=== PATIENT | female | born 2000 | race Caucasian/White ===

== ENCOUNTER 2019-01-26 07:19 | Day surgery (SDC) | payer OTHER ==
--- NOTE | 2019-01-25 19:02 | Pre-Procedure Note/Attestation ---
Pre-Procedure Note/Attestation Complete Prior to Procedure Planned Procedure: bilateral Procedure Narrative: 1. Bilateral tonsillectomy 2. Nasopharyngeal exam 3. Possible adenoidectomy Indications for Procedure Pre-Operative Diagnosis: Recurrent tonsillitis-usually strep with hypertrophied tonsils. Attestation I attest that I discussed the nature of the procedure; its benefits; risks and complications; and alternatives (and the risks and benefits of such alternatives ), prior to the procedure, with the patient (or the patient's legal counter sales representative). I attest that, if there was a reasonable possibility of needing a blood transfusion, the patient (or the patient's legal counter sales representative) was given the [place] Department of Health Services standardized written summary, pursuant to the [place] Blood Safety Act ([place] Health and Safety Code # 1645, as amended). I attest that I re-evaluated the patient just prior to the surgery and that there has been no change in the patient's H&P. Conner Berman MD Jan 25, 2019 19:02
--- NOTE | 2019-01-25 19:03 | Brief Operative Note ---
Immediate Post Operative Note Operative Note Chief Complaint: Resurent tonsillitis Pre-op Diagnosis: Recurrent tonsillitis-usually strep with hypertrophied tonsils. Procedure: 1. Bilateral tonsillectomy 2. Nasopharyngeal exam 3. Possible adenoidectomy Post-op Diagnosis: same as pre-op Surgeon: Conner Berman Stroboroma Operator: none Additional Surgeons: none Anesthesiologist: MD Joselito Anesthesia: general Specimen: yes - Right and left tonsils marked separately Complications: none Condition: stable Fluids: D5LR Estimated Blood Loss: volume - 5 cc Drains: none Packing: none Implant(s) used?: No Conner Berman MD Jan 25, 2019 19:03 Golden Benavidez MD Jan 26, 2019 09:29
--- NOTE | 2019-01-25 19:09 | History and Physical ---
"History & Physical (DB) History & Physical History & Physical Chief Complaint: Recurrent tonsillitis Reason for Hospitalization: outpt surgery History obtained from: Chart and Patient HPI: is a 18 year old female who presents with . Past Medical History:recurrent tonsil infections Social History:single, no children Past Medical History:otherwise unremarkable Diagnosis:Recurrent tonsillitis J03.01 Past Surgical History:[place] teeth Occupational History: Student [employer] | [employer] Smoking status:none Smokeless tobacco:none Alcohol use:social light Drug use:none Sexual activity:unknown Partners:unknown control/ protection:unknown Family History:ovarian cancer Allergies:NKDA Medications:NOrco, Augmentin Review of Symptoms: General ROS: no weight loss or fever Psychological ROS: no depression or mood changes, no memory loss Ophthalmic ROS: no visual changes or eye irritation ENT ROS: no nasal congestion, hearing loss, dizziness-HYPERTROPHIED BILATERAL PALATINE TONSILS. Allergy and Immunology ROS: no allergic symptoms or urticaria Hematological and Lymphatic ROS: no swollen glands, unusual bleeding or bruising Endocrine ROS: no polyuria, polydipsia, weight changes, temperature intolerance Respiratory ROS: no cough, shortness of breath, or wheezing Cardiovascular ROS: no chest pain or dyspnea on exertion Gastrointestinal ROS: no abdominal pain, change in bowel habits, or black or bloody stools Musculoskeletal ROS: no myalgias or arthralgias Neurological ROS: no TIA or stroke symptoms Dermatological ROS: no new or changing skin lesions, rashes or pruritis Physical Exam Vitals: Intake/Output Summary (Last 24 hours) General appearance: alert, cooperative, no distress, appears stated age Head: Normocephalic, without obvious abnormality, atraumatic Eyes: conjunctivae/corneas clear. PERRL, EOM's intact. Throat: Lips, mucosa, and tongue normal. Teeth and gums normal Neck: supple, symmetrical, trachea midline, no adenopathy, thyroid: not enlarged, symmetric, no tenderness/mass/nodules, no carotid bruit and no JVD Lungs: clear to auscultation bilaterally Heart: regular rate and rhythm, S1, S2 normal, no murmur, click, rub or gallop Abdomen: soft, non-tender. Bowel sounds normal. No masses, no organomegaly Extremities: extremities normal, atraumatic, no cyanosis or edema Pulses: 2+ and symmetric Skin: Skin color, texture, turgor normal. No rashes or lesions Neurologic: Grossly normal Laboratories:PREG TEST ON ADMISSION OTHERWISE NONE INDICATED IN THIS OTHERWISE HEALTHY 18 YO FEMALE. Assessment/Problem List: Recurrent tonsillitis Plan: 1. Bilateral tonsillectomy 2. Nasopharyngeal exam 3. Possible adenoidectomy DVT Prophylaxis: scd Code status: full Hospital Classification declaration: Based on this initial evaluation, and depending on the patient's clinical course, I anticipate that this patient will NOT require hospitalization. Disposition: Once the patient is stable to leave the hospital, I anticipate the patient will likely be discharged to the following environment-with parent to home. I spent 70 minutes on this patient's case, and minutes was dedicated to counseling and/or care coordination. Time of note may not reflect time of encounter. Conner Berman MD Jan 25, 2019 19:09"
--- NOTE | 2019-01-25 19:13 | Discharge Instructions ---
Discharge Instructions Discharge Instructions Follow up with: later in week-appt already set Diet: full liquid Resume Normal Activity?: No Activity: light activity Pneumonia Vaccine: pt refused vaccine Influenza Vaccine (Aug to Jan): pt refused vaccine Follow Up Orders Pt has printed post op instructions which were discussed and given to pt. at her pre op visit. Also Augmentin and [place] Rx were given to pt. at that time. Return to Work/School on: Feb 08, 2019 Special Instructions ice to neck x 48 hours. For Surgical Patients Dressing Care: other Contact your physician for: bleeding, pain, tenderness, redness, swelling, yellowish discharge in the op. site For Congestive Heart Failure Reminder Report to your physician any weight gain of 5 pounds or more in one week. Conner Berman MD Jan 25, 2019 19:13
[2019-01-26] VITALS (11 sets, daily range): BP systolic 105–135; BP diastolic 61–83
[~2019-01-26] VITALS: Ht 160 cm; Wt 53.1 kg
[~2019-01-26 07:19] MED LIST: Bupivacaine w/Epi 0.5% 30ml Vial INJ ONE; Cocaine HCl 4% 4ml vial TOPIC ONE; Lidocaine 1% 10mg/ml/Epi 0.005mg/ml 30ml vial INJ ONE; Thrombin 5000 units TOPIC ONE; ceFAZolin sod 1 GM in D5W 55 ML IV ONE
[2019-01-26] MEDS ORDERED: Dexamethasone 4mg/ml vial IVP ONE (07:30)
[2019-01-26] MEDS ORDERED: NKM (08:02)
[2019-01-26] MEDS ORDERED: Dyna-Hex 2% Top Sol 2oz TOPIC ONE (09:00)
[2019-01-26] MEDS ORDERED: LR 1000ml 1,000 ML IVLG SCH (09:14)
[2019-01-26] MEDS ORDERED: Hydromorphone 0.5mg/0.5ml inj IVP PRN (09:15)
[2019-01-26] MEDS ORDERED: Midazolam 2mg/2ml Inj IVP PRN (09:15)
[2019-01-26] MEDS ORDERED: oxyCODONE HCL/Acetaminophen 5/325mg ORAL PRN (09:15)
[2019-01-26] MEDS ORDERED: Labetalol 5mg/ml 20ml vial IV PRN (09:15)
[2019-01-26] MEDS ORDERED: HYDROcodone/Acetamin 5/325 tab ORAL PRN ×2 (09:15→10:30)
[2019-01-26] MEDS ORDERED: Meperidine 50mg/ml Inj(FOR RIGORS ONLY) IVP PRN (09:15)
[2019-01-26] MEDS ORDERED: Atropine Sulfate 0.4mg/ml inj IVP PRN (09:15)
[2019-01-26] MEDS ORDERED: LORazepam Inj 2mg/ml 1ml IV PRN (09:15)
[2019-01-26] MEDS ORDERED: HYDROcodone/Acetamin 7.5/325 tab ORAL PRN (09:15)
[2019-01-26] MEDS ORDERED: Metoclopramide 10mg/2ml Inj IVP PRN ×2 (09:15→10:30)
[2019-01-26] MEDS ORDERED: DiphenhydrAMINE 50mg/ml Inj IVP PRN (09:15)
[2019-01-26] MEDS ORDERED: Ketorolac 30mg Inj IV PRN ×2 (09:15)
[2019-01-26] MEDS ORDERED: fentaNYL 100 mcg/2 mL IV PRN (09:15)
--- NOTE | 2019-01-26 09:16 | Anethesia Preoperative Eval ---
Anesthesia Pre-op PMH/ROS General Date of Evaluation: Jan 26, 2019 Time of Evaluation: 09:04 Anesthesiologist: Reema ASA Score: ASA 1 Mallampati Score Class I : Soft palate, uvula, fauces, pillars visible Class II: Soft palate, uvula, fauces visible Class III: Soft palate, base of uvula visible Class IV: Only hard plate visible Mallampati Classification: Class I Surgeon: Antonella Diagnosis: Recurrant Tonsillitis Surgical Procedure: Bilateral Tonsillectomy Anesthesia History: none Family History: no anesthesia problems Allergies: Coded Allergies: No Known Allergies (Unverified , 01/25/19) Medications: see eMAR Patient NPO?: Yes Anesthesia Pre-op Phys. Exam Physician Exam Last Vital Signs Date Time Temp Pulse Resp B/P (MAP) Pulse Ox O2 Delivery O2 Flow Rate FiO2 01/26/19 07:58 Room Air 01/26/19 07:50 97.8 74 18 135/83 99 Constitutional: NAD Neurologic: CN 2-12 intact Cardiovascular: RRR Respiratory: CTA Gastrointestinal: S/NT/ND Airway Exam Mallampati Score: Class I MO: full ROM: full Teeth: intact Anesthesia Pre-op A/P Labs Urine Test Test 01/26/19 07:30 Urine HCG, Qualitative Negative (NEGATIVE) Risk Assessment & Plan Assessment: ASA 1 Plan: GA, SED, GlideScope Go Status Change Before Surgery: No Pre-Antibiotics Dru Gram Ancef IV Given Within 1 Hr of Incision: Yes Time Given: 09:16 Golden Benavidez MD Jan 26, 2019 09:16
--- NOTE | 2019-01-26 09:34 | 48 Hour Post Anesthesia Eval ---
Post Anesthesia Evaluation Procedure: Bilateral Tonsillectomy Date of Evaluation: Jan 26, 2019 Time of Evaluation: 12:34 Blood Pressure Systolic: 198 0: 74 Pulse Rate: 84 Respiratory Rate: 18 Temperature (Fahrenheit): 98.2 O2 Sat by Pulse Oximetry: 99 Airway: patent Nausea: No Vomiting: No Pain Intensity: 2 Hydration Status: adequate Cardiopulmonary Status: Stable Mental Status/LOC: patient returned to baseline Follow-up Care/Observations: 0 Post-Anesthesia Complications: 0 Follow-up care needed: ready to discharge Golden Benavidez MD Jan 26, 2019 09:34
--- NOTE | 2019-01-26 09:34 | Immediate Post-Op Evaluation ---
Immediate Post-Op Evalulation Immediate Post-Op Evalulation Procedure: Bilateral Tonsillectomy Date of Evaluation: Jan 26, 2019 Time of Evaluation: 10:28 IV Fluids: 500 LR Blood Products: 0 Estimated Blood Loss: 25 Urinary Output: 0 Blood Pressure Systolic: 105 Blood Pressure Diastolic: 62 Pulse Rate: 87 Respiratory Rate: 16 O2 Sat by Pulse Oximetry: 98 Temperature (Fahrenheit): 97.9 Pain Score (1-10): 2 Nausea: No Vomiting: No Complications 0 Patient Status: awake, reacts, patent, extubated, none Hydration Status: adequate Dru Gram Ancef IV Given Within 1 Hr of Incision: Yes Time Given: 09:16 Golden Benavidez MD Jan 26, 2019 09:34
[2019-01-26] MEDS ORDERED: HYDROmorphone 1mg/ml Carpuject SUBQ PRN (10:30)
--- NOTE | 2019-01-26 17:30 | Operative Note - Dictated ---
DATE OF OPERATION: 01/26/2019 SURGEON: Conner Berman M.D. FLIGHT DYNAMICIST: None. ANESTHESIOLOGIST: Golden Benavidez M.D. ANESTHESIA: Oral endotracheal anesthesia. Local 5 mL of 1% lidocaine 100,000 epinephrine at the beginning of the case. At the end of the case 5 mL of 0.5% bupivacaine with 1:200,000 epinephrine. INDICATION FOR SURGERY: Greater than 6 tonsil infections a year becoming refractory to medications. PREOPERATIVE DIAGNOSIS: Greater than 6 tonsil infections a year becoming refractory to medications. POSTOPERATIVE DIAGNOSIS: Greater than 6 tonsil infections a year becoming refractory to medications. FINDING: Deep 3+ tonsils. PROCEDURE: Bilateral tonsillectomy, indirect mirror exam of nasopharynx and adenoids. DESCRIPTION OF PROCEDURE: The patient prepped and draped in usual manner. Time-out was called. All concurred as procedure to be done and proper equipment was in the room. Initially, a McIvor mouth gag was placed after the patient was intubated and I injected with the aforementioned 1% lidocaine 100,000 epinephrine. I started on the right tonsil grasping with a curved Allis superior position. I dissected from an anterior superior to posterior inferior direction sticking as close to the capsule as possible. Once this was removed, I placed an tonsillar sponge in the superior aspect of the tonsil bed on the right. This was sent as a separate specimen in formalin. I turned my attention to the left tonsil. Once again, I grasped the superior pole with a curved Allis, pulled it medially, and dissected in the setting of 12 to 15 electrocautery without difficulty. This was a very deep tonsil even deeper than the one on the right. This too was sent in formalin labeled left tonsil. I then put down the McIvor mouth gag put it back up. There was no bleeding after a minute. I pulled up the soft palate, which was an indirect mirror exam of the nasopharynx. Adenoids were not enlarged. I could clearly see the posterior nasopharynx. I then put a McIvor mouth gag down for another minute to relax the blood vessels to see if there would be any bleeding of which there was none. I then injected with bupivacaine and epinephrine mixture noted above. Once again, I put down the tonsil gag for a minute and put it back up. There was no bleeding. The patient was extubated in the operating room. Awake, alert, and stable prior to transfer to the recovery room where she also was stable 10 minutes later. COUNTS: Sponge and needle count was correct. ESTIMATED BLOOD LOSS: 5 mL. COMPLICATIONS: None. DRAINS: None. Conner Berman M.D. DR: NITIN JOB#: [id number] CC: BRENDA
== END 2019-01-26 13:00 | disposition home or self-care (01) ==
LOC: SUR 07:19
DX: J35.01 Chronic tonsillitis (principal)
CPT/HCPCS: 42826; 81025; J1885; J3010; 94003; 94150